=== PATIENT | female | born 1930 | race Caucasian/White ===

== ENCOUNTER 2016-05-09 07:45 | Day surgery (SDC) | payer SELFPAY ==
--- NOTE | ~2016-05-09 | CN ---
Consultation Report [facility] [address] [facility] [place] [address] NAME: KAREN CARDOZA : 34 STATUS : REG [facility] PAT#: [id number] AGE: 86 ADM/REG DATE : 05/09/16 MR#: [id number] REPORT SERV DATE: 05/10/16 DICTATED BY: MADISON BOLDEN DATE: 05/09/16 REPORT STATUS : Draft TRANSCRIBED BY: MODL DATE: 05/09/[address] JUNE, ISHAN FERNANDEZ, AND BREA FERNANDEZ: THANK YOU FOR REQUESTING MY OPINION REGARDING EVALUATION AND MANAGEMENT OF MS. 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 MS. KAREN CARDOZA IS AN EXTREMELY PLEASANT 86-YEAR-OLD FEMALE FROM [facility] WITH A PAST MEDICAL HISTORY OF A BRONCHIAL AVM, DIAGNOSED IN 1994 BY RIGID BRONCHOSCOPY IN [facility], WHO PRESENTS TO [facility] WITH SEVERAL EPISODES OF SIGNIFICANT HEMOPTYSIS. TWO DAYS AGO, SHE WAS BENDING OVER TO FEED THE DOG, WHEN SHE COUGHED UP APPROXIMATELY HALF A CUP OF BRIGHT RED BLOOD, BECAME VISIBLY HYPOXIC AND PROMPTED ER EVALUATION AT [facility]. DR. PIÑA, THE ER DOCTOR ORDERED A CTA OF THE CHEST THAT DEMONSTRATED BILATERAL IRREGULAR PULMONARY NODULES, SOME OF THESE HAVE CAVITATED. THE LARGEST CAVITATED LUNG NODULE MEASURES APPROXIMATELY 17 X 20 MM. POSSIBLE ETIOLOGIES INCLUDED INFLAMMATORY NODULES, ABSCESSES, AND METASTASES. THERE WAS ALSO MINIMAL ATELECTASIS, FIBROSIS, PRIMARY IN THE UPPER LUNGS, AND THERE WAS NO EVIDENCE OF PNEUMOTHORAX, PLEURAL EFFUSION, OR PERICARDIAL EFFUSIONS, AND NO SIGNIFICANT MEDIASTINAL LYMPHADENOPATHY. THE PATIENT'S HISTORY IS LIMITED BY LANGUAGE BARRIER. DR. BREA FERNANDEZ PROVIDED ALL OF THE HISTORY. DR. BREA FERNANDEZ AND SANDEE FERNANDEZ PROVIDED THE HISTORY. SHE HAD TWO MORE EPISODES OF HEMOPTYSIS, CHARACTERIZED QUARTER TO HALF CUP IN VOLUME, AND SHE WAS EVALUATED IN THE ER, TOOK AT LEAST ONE DOSE OF LEVAQUIN ORALLY AND HER SYMPTOMS STOPPED. WITHIN THE LAST 24 TO 40 HOURS, SHE HAS NOT HAD ANOTHER EPISODE OF HEMOPTYSIS. SHE DENIES ANY SIGNIFICANT HISTORY OF SHORTNESS OF BREATH, FEVERS, CHILLS, NIGHT SWEATS, NAUSEA, VOMITING, DIARRHEA, OR CONSTIPATION. DATE OF CONSULTATION: REVIEW OF SYSTEMS: A detailed 14-point review of systems was provided by her family and limited due to her language barrier. PAST MEDICAL HISTORY: 1. AVM, diagnosed on rigid bronchoscopy in 1994. 2. Lifelong nonsmoker. PAST SURGICAL HISTORY: None. SOCIAL HISTORY: The patient immigrated to the [place] approximately nine years ago. She has no known history of tuberculosis exposures, although in [facility] tuberculosis is not uncommon. She has been a lifelong nonsmoker. There is no history of alcohol or illicit drug abuse. Consultation Report [address] [place]. [address] NAME: KAREN CARDOZA : 34 STATUS : REG [facility] PAT#: [id number] AGE: 86 ADM/REG DATE : 05/09/16 MR#: [id number] REPORT SERV DATE: 05/10/16 DICTATED BY: MADISON BOLDEN DATE: 05/09/16 REPORT STATUS : Draft TRANSCRIBED BY: KITTY DATE: 05/09/16 FAMILY HISTORY: Noncontributory. ALLERGIES: NO KNOWN DRUG ALLERGIES. HOME MEDICATIONS: The patient took at least one dose of Levaquin prior to today. She is on no other home medications. PHYSICAL EXAMINATION: VITAL SIGNS: Reviewed and located in the paper chart. GENERAL: No acute distress. Able to communicate in full paragraphs at a time. HEENT: Normocephalic, atraumatic. Pupils are equal, round, and reactive to light and accommodation. Posterior oropharynx is clear. NECK: No JVD. No LAD. Trachea midline. CARDIOVASCULAR: Regular rate and rhythm. S1 and S2 present. No obvious murmurs, rubs, or clicks. LUNGS: Upper lobe faint rhonchi, otherwise clear. ABDOMEN: Nontender, nondistended. Soft. Positive bowel sounds. EXTREMITIES: No clubbing, cyanosis, or edema. NEUROLOGIC: 5/5 strength in upper and lower extremities. Cranial nerves II through XII intact. Gait not tested. DTRs not performed. IMAGING: CTA of the chest performed on 05/07/2016 was personally reviewed by me and discussed with Dr. Sun June. Bilateral pulmonary nodules, including partially cavitating lung nodules, the largest one measuring in the right upper lobe, posterior subsegment 17 x 20 mm, bronchiectatic changes are noted as well as linear atelectasis or early fibrotic changes in the upper lobes. No evidence of mediastinal lymphadenopathy, pneumothorax, pleural or pericardial effusion. ASSESSMENT AND PLAN: Ms. Karen Cardoza is an extremely pleasant 86-year-old [place] female, who presents to [facility] with three episodes of significant hemoptysis. She had approximately a half cup of bright red blood with each episode became markedly hypoxic at least initially. CTA of the chest confirmed the presence of bilateral pulmonary nodules, bronchiectatic changes, and cavitation. The clinical and radiographic presentation is most consistent with an atypical infection such as mycobacterial disease. At this point, Ms. Cardoza needs an appropriate diagnostic intervention. We discussed in detail potential options. We agreed to proceed forward with EBUS navigation bronchoscopy. I have discussed her case with Dr. Simone Sweeney. We agreed to send mediastinal lymph node biopsies as well as biopsies of the largest right upper lobe cavitary lung lesion for bacteria, AFB, and fungal smears and cultures in addition to histology. The patient's family is aware that the procedure is associated with potential life- threatening risks, including lung collapse, respiratory failure, and even . Consultation Report [address] [place]. [address] NAME: KAREN CARDOZA : 34 STATUS : REG [facility] PAT#: [id number] AGE: 86 ADM/REG DATE : 05/09/16 MR#: [id number] REPORT SERV DATE: 05/10/16 DICTATED BY: MADISON BOLDEN DATE: 05/09/16 REPORT STATUS : Draft TRANSCRIBED BY: KITTY DATE: 05/09/16 RECOMMENDATIONS: A summary of my recommendations are as follows: 1. Proceed with EBUS and navigation bronchoscopy. 2. Obtain QuantiFERON Gold tuberculosis test. 3. Follow up with Dr. Ken Kim in the clinic as per family's request. 4. Infectious Disease consultation with Dr. Simone Sweeney. Thank you for allowing me to participate in Karen Cardoza's care. Sincerely, [facility]/KITTY Madison Bolden M.D. / [id number] CC: Madison Bolden M.D. Brea Fernandez M.D. Sandee Fernandez M.D. Sun June M.D.
--- NOTE | ~2016-05-09 | EGD ---
EGD REPORT [facility] [address] [address] NAME: KAREN CARDOZA : 34 STATUS : REG [facility]#: [id number] AGE: 86 ADM/REG DATE : 05/09/16 MR#: [id number] REPORT SERV DATE: 05/09/16 DICTATED BY: DENVER BOLDEN DATE: 05/09/16 REPORT STATUS : Draft TRANSCRIBED BY: [facility] DATE: 05/09/16 Pulmonology Patient Name: Karen Cardoza Procedure Date: 05/09/2016 10:23 AM Date of : 1930 Attending MD: JOSHUA BOLDEN MD Procedure Date No Time: 05/09/2016 Procedure: EBUS/VICKI BRONCHOSCOPY Indications: Multiple upper lobe cavitary lesions and bronchiectatic changes, hemoptysis Providers: JOSHUA BOLDEN MD Referring MD: SYD FERNANDEZ MD, OLE FERNANDEZ Medicines: Lidocaine 2% 20 mL Complications: No immediate complications Procedure: Pre-Anesthesia Assessment: - A History and Physical has been performed. Patient meds and allergies have been reviewed. The risks and benefits of the procedure and the sedation options and risks were discussed with the patient. All questions were answered and informed consent was obtained. Patient identification and proposed procedure were verified prior to the procedure by the physician and the nurse in the pre-procedure area in the procedure room. Mental Status Examination: normal. Airway Examination: normal oropharyngeal airway. Respiratory Examination: rhonchi. CV Examination: normal and RRR, no murmurs, no S3 or S4. ASA Grade Assessment: II - A patient with mild systemic disease. After reviewing the risks and benefits, the patient was deemed in satisfactory condition to undergo the procedure. The anesthesia plan was to use general anesthesia. Immediately prior to administration of medications, the patient was re-assessed for adequacy to receive sedatives. The heart rate, respiratory rate, oxygen saturations, blood pressure, adequacy of pulmonary ventilation, and response to care were monitored throughout the procedure. The physical status of the patient was re-assessed after the procedure. After obtaining informed consent, the BF [id number] was introduced through the mouth, via the endotracheal tube (the patient was intubated for the procedure) and advanced to the tracheobronchial tree. the Bronchoscope was introduced through the mouth, via the endotracheal tube (the patient was intubated for the procedure) and advanced to the tracheobronchial tree. The procedure was accomplished without difficulty. The patient EGD REPORT [address] [address] NAME: KAREN CARDOZA : 34 STATUS : [place] [facility] PAT#: [id number] AGE: 86 ADM/REG DATE : 05/09/16 MR#: [id number] REPORT SERV DATE: 05/09/16 DICTATED BY: DENVER BOLDEN DATE: 05/09/16 REPORT STATUS : Draft TRANSCRIBED BY: [employer] DATE: 05/09/16 tolerated the procedure well. Findings: The endotracheal tube is in good position. The visualized portion of the trachea is of normal caliber. The sherrill is sharp. The tracheobronchial tree was examined to at least the first subsegmental level. Bronchial mucosa and anatomy are normal. There was a large old blood clot in the distal trachea and scant blood in the RML. No active bleeding noted. No endobronchial lesions. EBUS TBNA of lymph node level 11L x 5 passes for cytology EBUS TBNA of lymph node level 7 x 7 passes for cytology and bacterial, AFB, and fungal cultures EBUS TBNA of lymph node level 11R x 7 passes for cytology and bacterial, AFB, and fungal cultures Using SuperDimension Edge catheter 180, peripheral probe EBUS 17s, and fluoroscopy, I performed the following biopsies: RUL cavitary lesion transbronchial needle aspirates x 8 passes for cytology and bacterial, AFB, and fungal cultures RUL cavitary lesion transbronchial brush biopsies x 2 passes for cytology and bacterial, AFB, and fungal cultures RUL cavitary lesion transbronchial forcep biopsies x 11 passes for histopathology and bacterial, AFB, and fungal cultures Bronchoalveolar lavage was performed in the right upper lobe of the lung and sent for cell count, cytology, bacterial culture, viral smears \\T\\ culture, and fungal and AFB analysis. 180 mL of fluid were instilled. 40 mL were returned. The return was blood-tinged and cellular. Impression: Rapid On-Site Evaluation (LUKE): Preliminary cytology is "negative lymph nodes". RUL cavitary lesion demonstrated "acute inflammatory changes, no granulomas" (final results are pending). No active bleeding noted. No endobronchial lesions. Recommendation: - Await test results. - Follow up in clinic. - Refer to/consult with Dr. Simone Sweeney, infectious disease. - Case discussed with Dr. Sweeney. - Quantiferon Gold TB test to be drawn before discharge Attending Participation: I personally performed the entire procedure. JOSHUA BOLDEN MD 05/09/2016 12:41 PM This report has been signed electronically. Number of Addenda: 0 Note Initiated On: 05/09/2016 10:23 AM EGD REPORT [facility] [address] [address] NAME: KAREN CARDOZA : 34 STATUS : [place] [facility] PAT#: [id number] AGE: 86 ADM/REG DATE : 05/09/16 MR#: [id number] REPORT SERV DATE: 05/09/16 DICTATED BY: DENVER BOLDEN DATE: 05/09/16 REPORT STATUS : Draft TRANSCRIBED BY: [employer] SERVICES DATE: 05/09/16 [facility] [address] [address]
[2016-05-09 14:42] LABS: BF TOTAL CELL CT (NOT ORD 1366 /MM3
[2016-05-09 14:43] LABS: BD FL SOURCE (NOT ORD) RUL BAL; BODY FLUID RBC (NOT ORD) 22000 /MM3
[2016-05-09 14:58] LABS: BD FL LYMPH (NOT ORD) 42 %; BF BASO (NOT OF) 0 %; BF LARGE MONONUCLEAR 23 %; BODY FLUID EOS (NOT ORD) 0 %; BODY FLUID SEG (NOT ORD) 35 %
[2016-05-14 08:34] LABS: QUANTIFERON MITOGEN (MG NIL) >10.00 IU/mL (()); QUANTIFERON NIL 0.08 IU/mL (()); QUANTIFERON TB GOLD Positive (NEG); TUBERCULOSIS AG VAL (Ag-Nil) 0.39 IU/mL (<0.35)
== END 2016-05-09 23:59 | disposition home or self-care (01) ==
LOC: DMU 07:45
PROVIDERS: Internal Medicine
PROC: 0BBC8ZX Excision of Right Upper Lung Lobe, Via Natural or Artificial Opening Endoscopic, Diagnostic (ICD-10-PCS; principal; 2016-05-09 09:30)
PROC: 07B74ZX Excision of Thorax Lymphatic, Percutaneous Endoscopic Approach, Diagnostic (ICD-10-PCS; 2016-05-09 09:30)
PROC: 0B948ZX Drainage of Right Upper Lobe Bronchus, Via Natural or Artificial Opening Endoscopic, Diagnostic (ICD-10-PCS; 2016-05-09 09:30)
PROC: 0BB48ZX Excision of Right Upper Lobe Bronchus, Via Natural or Artificial Opening Endoscopic, Diagnostic (ICD-10-PCS; 2016-05-09 09:30)
DX: J18.9 Pneumonia, unspecified organism (principal); J98.4 Other disorders of lung
CPT/HCPCS: 71010; 86480; 87015; 87070; 87101; 87102; 87107; 87116; 87205; 88112; 88172; 88173; 88305; 88312; 88333; 89051; 93005; A9270-GY; C1725; C1769; J2370; J2405; J2710; J3010